=== PATIENT | male | born 1950 | race Asian ===

== ENCOUNTER 2018-09-08 18:18 | Emergency (ER) | payer OTHER ==
[~2018-09-08] VITALS: Ht 165.1 cm; Wt 65.8 kg
[2018-09-08 18:20] VITALS: Ht 165.1 cm; Wt 65.8 kg
[2018-09-08 19:12] LABS: BASOPHIL % 0.8 % (0-2); CALCIUM 8.3 mg/dL (8.5-10.1); CARBON DIOXIDE 29.9 mmol/L (21-32); CREATININE SERUM 1.4 mg/dL (0.7-1.3); PLATELET COUNT 226 x10^3mcL (130-400); RED CELL DISTRIBUTION WIDTH 13.2 % (11.5-14.5)
[2018-09-08 19:14] LABS: BILIRUBIN TOTAL 0.5 mg/dL (0.20-1.00); TOTAL PROTEIN, SERUM 7.7 g/dL (6.4-8.2)
[2018-09-09 01:05] VITALS: BP 130/74
== END 2018-09-09 01:06 | disposition home or self-care (01) ==
LOC: ED 18:18
DX: J44.1 Chronic obstructive pulmonary disease with (acute) exacerbation (principal); I10 Essential (primary) hypertension; Z88.0 Allergy status to penicillin; Z85.46 Personal history of malignant neoplasm of prostate
CPT/HCPCS: J2930; J7613; J7644; Q9967